=== PATIENT | female | born 1980 | race Caucasian/White ===

== ENCOUNTER 2017-05-23 11:42 | Emergency (ER) | payer MEDICAID, OTHER ==
[~2017-05-23] VITALS: Ht 157.5 cm; Wt 156.9 kg
[2017-05-23] MEDS ORDERED: FAMOTIDINE 20 MG/2 ML IVP ONE (12:00)
[2017-05-23] MEDS ORDERED: SODIUM CHLORIDE 0.9% 1,000ML IVBOLUS ONE ×2 (12:00→14:00)
[2017-05-23] MEDS ORDERED: ONDANSETRON 2MG/ML, 2ML IVPush ONE (12:00)
[2017-05-23 12:29] LABS: BASOPHILS # (AUTO) 0.02 x10^3/uL (0-0.1); BASOPHILS % (AUTO) 0 % (0-1); EOSINOPHILS % (AUTO) 0 % (1-7); LYMPHOCYTES # (AUTO) 0.73 x10^3/uL (1-3.4); LYMPHOCYTES % (AUTO) 9 % (22-44); MD NO; MEAN CORPUSCULAR HEMOGLOBIN 28.9 pg (27.0-34.8); MEAN CORPUSCULAR HGB CONC 33.9 g/dL (32.4-35.8); MEAN CORPUSCULAR VOLUME 85.3 fL (80-100); MEAN PLATELET VOLUME 8.6 fL (7.4-10.4); MONOCYTES # (AUTO) 0.39 x10^3/uL (0.2-0.8); MONOCYTES % (AUTO) 5 % (2-9); NEUTROPHILS # (AUTO) 6.69 x10^3/uL (1.8-6.8); NEUTROPHILS % (AUTO) 85 % (42-75); PLATELET COUNT 262 x10^3/uL (130-400); RED BLOOD COUNT 4.68 x10^6/uL (3.82-5.3); RED CELL DISTRIBUTION WIDTH 13.2 % (9.6-15.2)
[2017-05-23 12:40] LABS: ANION GAP 9 mmol/L (5-15); CALCIUM 8.8 mg/dL (8.5-10.1); CHLORIDE 112 mmol/L (98-107)
[2017-05-23 12:43] LABS: ALANINE AMINOTRANSFERASE 16 U/L (12-78); ALKALINE PHOSPHATASE 65 U/L (45-117); BILIRUBIN,TOTAL 0.9 mg/dL (0.2-1.0); CREATININE 1.76 mg/dL (0.55-1.02); TOTAL PROTEIN 7.8 g/dL (6.4-8.2)
[2017-05-23 14:00] LABS: MICROSCOPIC AUTO
[2017-05-23] MEDS ORDERED: ONDANSETRON 2MG/ML, 2ML ONE (14:05)
[2017-05-23] MEDS ORDERED: FAMOTIDINE 20 MG/2 ML ONE (14:05)
[2017-05-23 14:06] LABS: CULTURE INDICATED? NO
[2017-05-23 14:07] LABS: O2 FLOW ROOM AIR L/min; PH, VENOUS 7.388 pH (7.320-7.420)
[2017-05-23 14:17] LABS: ACETONE, SERUM Small (20mg/dL) mg/dL (Negative)
[2017-05-23 15:13] VITALS: BP 168/94
== END 2017-05-23 15:25 | disposition home or self-care (01) ==
LOC: ED 13:41
DX: K22.6 Gastro-esophageal laceration-hemorrhage syndrome (principal); E86.0 Dehydration
CPT/HCPCS: 36415; 74022; 80053; 81001; 82010; 82803; 85025; 96361; 96374; 96375; 99285; J2405; J7030; S0028